=== PATIENT | female | born 1970 | race Caucasian/White ===

== ENCOUNTER → 2017-08-18 | Outpatient (REF) | payer MEDICARE, OTHER | LOC: M SFHCLACO 10:11 | PROVIDERS: ATTEND Physician Assistant | DX: Z01.419 Encounter for gynecological examination (general) (routine) without abnormal findings (principal); L85.9 Epidermal thickening, unspecified ==

== ENCOUNTER → 2017-09-05 | Outpatient (REF) | payer MEDICARE, OTHER ==
[2017-09-05 13:13] LABS: MEAN CORPUSCULAR HEMOGLOBIN 32.1 pg (27.0-33.0); MEAN CORPUSCULAR HGB CONC 33.3 g/dl (32.0-36.5); MEAN CORPUSCULAR VOLUME 96.6 fl (80.0-96.0); PLATELET COUNT, AUTOMATED 311 10^3/uL (150-450); RED CELL DISTRIBUTION WIDTH 12.7 % (11.5-14.5); WHITE BLOOD COUNT 11.5 10^3/uL (4.0-10.0)
[2017-09-05 14:08] LABS: FOLLICLE STIMULATING HORMONE 4.6 mIU/mL
[2017-09-05 14:15] LABS: LUTEINIZING HORMONE 3.9 mIU/mL
[2017-09-05 14:18] LABS: ALBUMIN 3.9 GM/DL (3.2-5.2); ALBUMIN/GLOBULIN RATIO 1.63 (1.00-1.93); ALKALINE PHOSPHATASE 56 U/L (45-117); ALT/SGPT 21 U/L (12-78); ANION GAP 6 MEQ/L (8-16); AST/SGOT 12 U/L (7-37); BILIRUBIN,TOTAL 0.3 MG/DL (0.2-1.0); BLOOD UREA NITROGEN 11 MG/DL (7-18); CALCIUM LEVEL 8.8 MG/DL (8.5-10.1); CARBON DIOXIDE LEVEL 28 MEQ/L (21-32); CHLORIDE LEVEL 107 MEQ/L (98-107); GLOMERULAR FILTRATION RATE > 60.0 (>58); GLUCOSE, FASTING 94 MG/DL (70-105); POTASSIUM SERUM 4.3 MEQ/L (3.5-5.1); SODIUM LEVEL 141 MEQ/L (136-145); TOTAL PROTEIN 6.3 GM/DL (6.4-8.2)
== END ==
LOC: M SFHCLACO 09:59
PROVIDERS: ATTEND Physician Assistant
DX: F34.1 Dysthymic disorder (principal); J44.9 Chronic obstructive pulmonary disease, unspecified; N92.6 Irregular menstruation, unspecified

== ENCOUNTER → 2018-05-08 | Outpatient (REF) | payer OTHER ==
[2018-05-08 15:45] LABS: ALBUMIN/GLOBULIN RATIO 1.38 (1.00-1.93); ALKALINE PHOSPHATASE 79 U/L (45-117); ALT/SGPT 21 U/L (12-78); ANION GAP 7 MEQ/L (8-16); AST/SGOT 14 U/L (7-37); BILIRUBIN,TOTAL 0.5 MG/DL (0.2-1.0); BLOOD UREA NITROGEN 13 MG/DL (7-18); CALCIUM LEVEL 9.2 MG/DL (8.5-10.1); CARBON DIOXIDE LEVEL 27 MEQ/L (21-32); CHLORIDE LEVEL 107 MEQ/L (98-107); CHOLESTEROL LEVEL 124 MG/DL (<200); CHOLESTEROL RISK RATIO 2.755 (<5); CREATININE FOR GFR 0.77 MG/DL (0.55-1.30); GLOMERULAR FILTRATION RATE > 60.0 (>58); GLUCOSE, FASTING 87 MG/DL (70-100); HDL CHOLESTEROL 45 MG/DL (>40); LDL CHOLESTEROL 56.8 MG/DL (<100); MAGNESIUM LEVEL 1.9 MG/DL (1.8-2.4); NON-HDL-C 79 MG/DL; POTASSIUM SERUM 4.1 MEQ/L (3.5-5.1); SODIUM LEVEL 141 MEQ/L (136-145); TOTAL PROTEIN 6.9 GM/DL (6.4-8.2); TRIGLYCERIDES LEVEL 111 MG/DL (<150)
[2018-05-11 00:37] LABS: Lyme Disease IgG/IgM Antibodie <0.91 ISR (0.00-0.90); Lyme Disease IgM Ab Quantitati <0.80 index (0.00-0.79)
== END ==
LOC: M SFHCLACO 10:54
DX: Z86.79 Personal history of other diseases of the circulatory system (principal); M62.838 Other muscle spasm
CPT/HCPCS: 83735

== ENCOUNTER → 2019-01-15 | Outpatient (CLI) | payer OTHER ==
--- NOTE | 2019-01-15 15:09 | REP ---
PELVIC SONOGRAPHY: HISTORY: Abnormal menstrual bleeding. FINDINGS: Transabdominal and transvaginal scanning are included. Uterine dimensions are normal measured at 7.5 x 5.1 x 7.2 cm. Endometrial echo 0.4 cm in thickness. There is a Nabothian cyst in the cervix. There are small echogenic foci in the endometrium. Visualized bladder marino are smooth. Normal ovaries are seen bilaterally. Right ovary measures 2.6 x 1.4 x 2.4 cm. Left ovary dimensions are 2.3 x 2.1 x 1.4 cm. There is a 1.4 cm follicle cyst in the right ovary. IMPRESSION: No significant morphologic abnormality. Electronically Signed by Joe Gay MD 01/15/2019 05:24 P
== END ==
LOC: M WHC 10:23
PROVIDERS: ATTEND Nurse Practitioner Women's Health
DX: N92.1 Excessive and frequent menstruation with irregular cycle (principal)

== ENCOUNTER → 2019-01-15 | Outpatient (REF) | payer OTHER ==
[2019-01-17 14:21] LABS: HPV HYBRID CAPTURE II Positive (Negative)
== END ==
LOC: M SFHCWAGY 08:58
PROVIDERS: ATTEND Nurse Practitioner Women's Health
DX: Z12.4 Encounter for screening for malignant neoplasm of cervix (principal); R87.610 Atypical squamous cells of undetermined significance on cytologic smear of cervix (ASC-US)

== ENCOUNTER → 2019-02-19 | Outpatient (REF) | payer OTHER | LOC: M SFHCWAGY 12:30 | PROVIDERS: ATTEND Nurse Practitioner Women's Health | DX: R87.810 Cervical high risk human papillomavirus (HPV) DNA test positive (principal); R87.610 Atypical squamous cells of undetermined significance on cytologic smear of cervix (ASC-US) ==

== ENCOUNTER → 2019-08-30 | Outpatient (CLI) | payer OTHER ==
--- NOTE | 2019-09-02 08:51 | REP ---
MRI cervical spine: 08/30/2019. Indication: Neck pain. Comparison: None. Technique: Multiplanar short and long TR sequences of the cervical spine were obtained without IV Gadolinium. Findings: There is straightening of the cervical lordosis. Disc desiccation and disc space narrowing are present throughout most pronounced at C5/C6 and C6/C7. There is a focus of heterogeneous elevated T2 signal within the superior aspect of T1 which demonstrates T1 prolongation as well. The vertebral flow voids appear unremarkable. No significant paraspinal soft tissue abnormalities are detected. C2/C3, C3/C4 and C4/C5: There are no significant disc herniations or areas of significant spinal canal / neural foraminal narrowing. C5/C6: There is an asymmetric disc osteophyte complex more apparent on the right and in with mild spinal canal and moderate to severe right neural foraminal narrowing. C6/C7: Diffuse disc osteophyte complex and suspected right lateral disc protrusion are present with severe bilateral neural foraminal narrowing. There is mild to moderate spinal canal narrowing. C7/T1: No disc herniation or significant spinal canal / neural foraminal narrowing. Impression: Degenerative sequelae of the cervical spine most pronounced at C6/C7 as described. 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 This could be confirmed with CT evaluation. Electronically Signed by Andrea España DO 09/02/2019 08:42 A
== END ==
LOC: M RAD 16:49
PROVIDERS: ATTEND Physician Assistant
DX: M54.2 Cervicalgia (principal); M25.78 Osteophyte, vertebrae

== ENCOUNTER → 2019-12-03 | Outpatient (REF) | payer OTHER ==
[2019-12-03 13:35] LABS: PLATELET COUNT, AUTOMATED 284 10^3/uL (150-450)
[2019-12-03 13:46] LABS: INR 1.06; PARTIAL THROMBOPLASTIN TIME 27.7 SECONDS (25.0-38.4); PROTHROMBIN TIME 13.5 SECONDS (11.8-14.0)
== END ==
LOC: M LABDRAW1 12:11
PROVIDERS: ATTEND Physician Assistant
DX: M47.22 Other spondylosis with radiculopathy, cervical region (principal); Z01.812 Encounter for preprocedural laboratory examination

== ENCOUNTER → 2020-04-28 | Outpatient (REF) | payer OTHER | LOC: M SFHCWAGY 10:46 | PROVIDERS: ATTEND Nurse Practitioner Women's Health | DX: Z12.4 Encounter for screening for malignant neoplasm of cervix (principal) ==

== ENCOUNTER → 2021-04-13 | Outpatient (CLI) | payer OTHER ==
--- NOTE | 2021-04-13 10:15 | REP ---
INDICATION: PAIN IN TOE OF LEFT FOOT. COMPARISON: None. TECHNIQUE: Four views left 2nd through 4th toes. FINDINGS: There is no acute fracture or dislocation. There are large bony spurs at the margins of the proximal and distal interphalangeal joints. A smoothly marginated calcific density projects at the dorsal margin of the 2nd metatarsal phalangeal joint, measuring approximately 14 x 6 mm. IMPRESSION: Large bony spurs at the margins of the 2nd proximal and distal interphalangeal joints. Calcific body at the dorsal aspect of the 2nd metatarsophalangeal joint. <Electronically signed by Bryan Amos > 04/13/21 1014
== END ==
LOC: M ADAMS 09:43
PROVIDERS: ATTEND Physician Assistant
DX: M79.675 Pain in left toe(s) (principal)

== ENCOUNTER → 2021-05-25 | Outpatient (REF) | payer OTHER ==
[2021-05-25 17:22] LABS: HEMOGLOBIN A1c 5.3 %
== END ==
LOC: M SFHCADAM 09:39
PROVIDERS: ATTEND Physician Assistant
DX: R73.9 Hyperglycemia, unspecified (principal)

== ENCOUNTER → 2021-08-23 | Outpatient (REF) | payer OTHER ==
[2021-08-23 18:02] LABS: BASO # 0.1 10^3/uL (0.0-0.2); BASO % 0.5 % (0.0-1.0); EOS # 0.6 10^3/uL (0.0-0.5); EOS % 4.4 % (0.0-3.0); HEMATOCRIT 45.3 % (36.0-47.0); HEMOGLOBIN 14.9 g/dl (12.0-15.5); LYMPH # 3.2 10^3/uL (1.5-5.0); LYMPH % 25.2 % (24.0-44.0); MEAN CORPUSCULAR HEMOGLOBIN 31.2 pg (27.0-33.0); MEAN CORPUSCULAR HGB CONC 32.9 g/dl (32.0-36.5); MONO # 0.9 10^3/uL (0.0-0.8); MONO % 7.5 % (2.0-8.0); NEUTROPHILS # 7.8 10^3/uL (1.5-8.5); NEUTROPHILS % 61.9 % (36.0-66.0); PLATELET COUNT, AUTOMATED 299 10^3/uL (150-450); RED BLOOD COUNT 4.77 10^6/uL (4.00-5.40); WHITE BLOOD COUNT 12.6 10^3/uL (4.0-10.0)
[2021-08-23 18:08] LABS: ALBUMIN 3.9 GM/DL (3.2-5.2); ALT/SGPT 24 U/L (12-78); BILIRUBIN,TOTAL 0.2 MG/DL (0.2-1.0); BLOOD UREA NITROGEN 13 MG/DL (7-18); CALCIUM LEVEL 9.9 MG/DL (8.5-10.1); CARBON DIOXIDE LEVEL 29 MEQ/L (21-32); CHLORIDE LEVEL 106 MEQ/L (98-107); CREATININE FOR GFR 0.88 MG/DL (0.55-1.30); GLOMERULAR FILTRATION RATE > 60.0 (>51); GLUCOSE, FASTING 85 MG/DL (70-100); POTASSIUM SERUM 4.3 MEQ/L (3.5-5.1); SODIUM LEVEL 138 MEQ/L (136-145); TOTAL PROTEIN 7.1 GM/DL (6.4-8.2)
== END ==
LOC: M SFHCADAM 13:53
PROVIDERS: ATTEND Family Medicine
DX: Z01.818 Encounter for other preprocedural examination (principal)

== ENCOUNTER → 2023-02-16 | Outpatient (CLI) | payer OTHER ==
[~2023-02-16] MED LIST: **SFHN** SODIUM BICARBONATE 8.4% 10MEQ 10ML VIAL ONE; AMIT10TA7 PO; FLUO10CA18 PO; INCR1INH INH; LIDOCAINE 1% MDV 20ML VIAL ONE; LOSA25TA13 PO; NOXI1TAB PO
[2023-02-16 14:41] VITALS: BP 100/64
== END ==
LOC: M WHCPRO 13:28
PROVIDERS: ATTEND Surgery
DX: R92.8 Other abnormal and inconclusive findings on diagnostic imaging of breast (principal)

== ENCOUNTER → 2023-08-08 | Outpatient (CLI) | payer OTHER ==
[~2023-08-08] MED LIST changes: -**SFHN** SODIUM BICARBONATE 8.4% 10MEQ 10ML VIAL ONE; -LIDOCAINE 1% MDV 20ML VIAL ONE
== END ==
LOC: M WHC 08:04
PROVIDERS: ATTEND Surgery
DX: R92.8 Other abnormal and inconclusive findings on diagnostic imaging of breast (principal)

== ENCOUNTER → 2023-08-14 | Outpatient (REF) | payer OTHER ==
[2023-08-14 13:52] LABS: BASO # 0.1 10^3/uL (0.0-0.2); BASO % 0.7 % (0.0-1.0); EOS # 0.5 10^3/uL (0.0-0.5); EOS % 5.5 % (0.0-3.0); HEMATOCRIT 48.4 % (36.0-47.0); HEMOGLOBIN 16.6 g/dl (12.0-15.5); LYMPH # 2.8 10^3/uL (1.5-5.0); LYMPH % 31.7 % (24.0-44.0); MEAN CORPUSCULAR HEMOGLOBIN 32.4 pg (27.0-33.0); MEAN CORPUSCULAR HGB CONC 34.3 g/dl (32.0-36.5); MEAN CORPUSCULAR VOLUME 94.5 fl (80.0-96.0); MONO # 0.9 10^3/uL (0.0-0.8); MONO % 9.7 % (2.0-8.0); NEUTROPHILS # 4.7 10^3/uL (1.5-8.5); NEUTROPHILS % 52.1 % (36.0-66.0); PLATELET COUNT, AUTOMATED 283 10^3/uL (150-450); RED BLOOD COUNT 5.12 10^6/uL (4.00-5.40); WHITE BLOOD COUNT 8.9 10^3/uL (4.0-10.0)
[2023-08-15 01:57] LABS: ALBUMIN 4.1 G/DL (3.2-5.2); ALKALINE PHOSPHATASE 96 U/L (46-116); ALT/SGPT 19 U/L (7.0-40); AST/SGOT 15 U/L (<34); BILIRUBIN,TOTAL 0.4 MG/DL (0.3-1.2); BLOOD UREA NITROGEN 12 MG/DL (9-23); CALCIUM LEVEL 9.9 MG/DL (8.5-10.1); CARBON DIOXIDE LEVEL 28 MMOL/L (20-31); CHLORIDE LEVEL 104 MMOL/L (98-107); CHOLESTEROL LEVEL 180 MG/DL (<200); CHOLESTEROL RISK RATIO 5.04 (<5); CREATININE FOR GFR 0.66 MG/DL (0.55-1.30); GLOMERULAR FILTRATION RATE > 60.0 (>51); GLUCOSE, FASTING 83 MG/DL (60-100); HDL CHOLESTEROL 35.7 MG/DL (>40); LDL CHOLESTEROL 106.7 MG/DL (<100); NON-HDL-C 144.3 MG/DL; POTASSIUM SERUM 4.4 MMOL/L (3.5-5.1); SODIUM LEVEL 138 MMOL/L (136-145); THYROID STIMULATING HORMONE 1.181 uIU/ML (0.55-4.78); TOTAL 25(OH) VITAMIN D 40.2 NG/ML (20.0-100.0); TRIGLYCERIDES LEVEL 188 MG/DL (<150)
== END ==
LOC: M SFHCADAM 11:22
PROVIDERS: ATTEND Physician Assistant Medical
DX: F33.1 Major depressive disorder, recurrent, moderate (principal); F41.1 Generalized anxiety disorder; I10 Essential (primary) hypertension; E55.9 Vitamin D deficiency, unspecified

== ENCOUNTER → 2023-09-11 | Outpatient (CLI) | payer OTHER | LOC: M RAD 07:38 | PROVIDERS: ATTEND Physician Assistant Medical | DX: Z12.2 Encounter for screening for malignant neoplasm of respiratory organs (principal); F17.210 Nicotine dependence, cigarettes, uncomplicated ==

== ENCOUNTER → 2023-09-11 | Outpatient (REF) | payer OTHER | LOC: M SFHCWAGY 13:39 | PROVIDERS: ATTEND Nurse Practitioner Family | DX: Z12.4 Encounter for screening for malignant neoplasm of cervix (principal) ==

== ENCOUNTER → 2024-02-12 | Outpatient (CLI) | payer OTHER | LOC: M ADAMS 14:49 | PROVIDERS: ATTEND Physician Assistant | DX: R22.31 Localized swelling, mass and lump, right upper limb (principal) ==

== ENCOUNTER → 2024-05-07 | Outpatient (REF) | payer OTHER ==
[~2024-05-07] MED LIST changes: +FLUO-290 PO; -FLUO10CA18 PO; +FLUO40CA PO; +MELO7.5T35 PO; +VITA200032 PO
[2024-05-07 15:10] LABS: BASO # 0.1 10^3/uL (0.0-0.2); BASO % 0.6 % (0.0-1.0); EOS # 0.4 10^3/uL (0.0-0.5); HEMATOCRIT 48.6 % (36.0-47.0); HEMOGLOBIN 15.9 g/dl (12.0-15.5); LYMPH # 2.4 10^3/uL (1.5-5.0); LYMPH % 29.3 % (24.0-44.0); MEAN CORPUSCULAR HEMOGLOBIN 32.1 pg (27.0-33.0); MEAN CORPUSCULAR HGB CONC 32.7 g/dl (32.0-36.5); MONO # 0.5 10^3/uL (0.0-0.8); MONO % 5.9 % (2.0-8.0); NEUTROPHILS # 4.8 10^3/uL (1.5-8.5); NEUTROPHILS % 58.7 % (36.0-66.0); PLATELET COUNT, AUTOMATED 277 10^3/uL (150-450); RED BLOOD COUNT 4.96 10^6/uL (4.00-5.40); WHITE BLOOD COUNT 8.3 10^3/uL (4.0-10.0)
[2024-05-07 15:21] LABS: THYROID STIMULATING HORMONE 1.666 uIU/ML (0.55-4.78)
[2024-05-07 15:23] LABS: ALBUMIN 4.1 G/DL (3.2-5.2); ALKALINE PHOSPHATASE 97 U/L (46-116); ALT/SGPT 19 U/L (7.0-40); AST/SGOT < 8 U/L (<34); BILIRUBIN,TOTAL 0.4 MG/DL (0.3-1.2); BLOOD UREA NITROGEN 16 MG/DL (9-23); CALCIUM LEVEL 9.9 MG/DL (8.5-10.1); CARBON DIOXIDE LEVEL 29 MMOL/L (20-31); CHLORIDE LEVEL 107 MMOL/L (98-107); CHOLESTEROL LEVEL 165 MG/DL (<200); CHOLESTEROL RISK RATIO 4.83 (<5); CREATININE FOR GFR 0.72 MG/DL (0.55-1.30); GLOMERULAR FILTRATION RATE > 60.0 (>51); GLUCOSE, FASTING 95 MG/DL (60-100); HDL CHOLESTEROL 34.1 MG/DL (>40); LDL CHOLESTEROL 90.7 MG/DL (<100); NON-HDL-C 130.9 MG/DL; POTASSIUM SERUM 4.3 MMOL/L (3.5-5.1); SODIUM LEVEL 141 MMOL/L (136-145); TOTAL PROTEIN 6.7 G/DL (5.7-8.2); TRIGLYCERIDES LEVEL 201 MG/DL (<150)
== END ==
LOC: M SFHCADAM 09:44
PROVIDERS: ATTEND Physician Assistant Medical
DX: I10 Essential (primary) hypertension (principal); K21.9 Gastro-esophageal reflux disease without esophagitis; E55.9 Vitamin D deficiency, unspecified; F33.1 Major depressive disorder, recurrent, moderate; F41.1 Generalized anxiety disorder

== ENCOUNTER → 2024-05-07 | Outpatient (REF) | payer OTHER ==
[2024-05-07 15:51] LABS: BASO # 0.1 10^3/uL (0.0-0.2); BASO % 0.6 % (0.0-1.0); EOS # 0.4 10^3/uL (0.0-0.5); EOS % 4.9 % (0.0-3.0); HEMATOCRIT 48.7 % (36.0-47.0); HEMOGLOBIN 15.8 g/dl (12.0-15.5); LYMPH # 2.6 10^3/uL (1.5-5.0); LYMPH % 30.7 % (24.0-44.0); MEAN CORPUSCULAR HEMOGLOBIN 31.9 pg (27.0-33.0); MEAN CORPUSCULAR HGB CONC 32.4 g/dl (32.0-36.5); MEAN CORPUSCULAR VOLUME 98.2 fl (80.0-96.0); MONO # 0.4 10^3/uL (0.0-0.8); MONO % 4.6 % (2.0-8.0); NEUTROPHILS % 58.6 % (36.0-66.0); PLATELET COUNT, AUTOMATED 284 10^3/uL (150-450); RED BLOOD COUNT 4.96 10^6/uL (4.00-5.40); WHITE BLOOD COUNT 8.6 10^3/uL (4.0-10.0)
[2024-05-07 15:57] LABS: ALBUMIN 4.1 G/DL (3.2-5.2); ALKALINE PHOSPHATASE 96 U/L (46-116); ALT/SGPT 18 U/L (7.0-40); AST/SGOT < 8 U/L (<34); BILIRUBIN,TOTAL 0.4 MG/DL (0.3-1.2); BLOOD UREA NITROGEN 17 MG/DL (9-23); CALCIUM LEVEL 9.9 MG/DL (8.5-10.1); CARBON DIOXIDE LEVEL 30 MMOL/L (20-31); CHLORIDE LEVEL 107 MMOL/L (98-107); CHOLESTEROL LEVEL 160 MG/DL (<200); CHOLESTEROL RISK RATIO 4.95 (<5); CREATININE FOR GFR 0.72 MG/DL (0.55-1.30); GLOMERULAR FILTRATION RATE > 60.0 (>51); GLUCOSE, FASTING 95 MG/DL (60-100); HDL CHOLESTEROL 32.3 MG/DL (>40); LDL CHOLESTEROL 88.1 MG/DL (<100); NON-HDL-C 127.7 MG/DL; POTASSIUM SERUM 4.3 MMOL/L (3.5-5.1); SODIUM LEVEL 141 MMOL/L (136-145); TOTAL PROTEIN 6.7 G/DL (5.7-8.2); TRIGLYCERIDES LEVEL 198 MG/DL (<150)
== END ==
LOC: M LABDRWAD 15:18
PROVIDERS: ATTEND Physician Assistant Medical
DX: I10 Essential (primary) hypertension (principal); R06.02 Shortness of breath; R07.2 Precordial pain

== ENCOUNTER 2024-05-10 06:15 | Day surgery (SDC) | payer OTHER ==
[~2024-05-10] VITALS: Ht 160 cm; Wt 84.8 kg
[2024-05-10] MEDS ORDERED: BACITRACIN OINTMENT 30GM TUBE As Ordered ONE (07:17)
[2024-05-10] MEDS ORDERED: ceFAZolin 2 GM/D5W 50 ML IV BAG As Ordered ONE (07:41)
[2024-05-10] MEDS ORDERED: LIDOCAINE 2% 100MG/5ML SDV (FOR ANES.) As Ordered ONE (08:09)
[2024-05-10] MEDS ORDERED: KETOROLAC 60MG 2ML VIAL As Ordered ONE (08:09)
[2024-05-10] MEDS ORDERED: MIDAZOLAM INJ 2MG/2ML VIAL As Ordered ONE (08:09)
[2024-05-10] MEDS ORDERED: propofoL 200 MG/20 ML VIAL As Ordered ONE (08:09)
[2024-05-10] MEDS ORDERED: ACETAMINOPHEN 1000MG 100ML IV BAG As Ordered ONE (08:09)
[2024-05-10] MEDS ORDERED: fentaNYL 100 MCG/2 ML INJECTION As Ordered ONE (08:09)
[2024-05-10] MEDS ORDERED: ONDANSETRON 4MG 2ML VIAL As Ordered ONE (08:09)
[2024-05-10] MEDS ORDERED: ePHEDrine SULFATE 25 MG/5 ML(5MG/ML) SYRINGE As Ordered ONE (08:09)
== END 2024-05-10 09:50 | disposition home or self-care (01) ==
LOC: M SDC 06:15
PROVIDERS: ATTEND Orthopaedic Surgery Hand Surgery
DX: M12.241 Villonodular synovitis (pigmented), right hand (principal); J44.9 Chronic obstructive pulmonary disease, unspecified; F17.218 Nicotine dependence, cigarettes, with other nicotine-induced disorders; Z79.51 Long term (current) use of inhaled steroids; I10 Essential (primary) hypertension; F41.9 Anxiety disorder, unspecified; F32.A Depression, unspecified; Z79.899 Other long term (current) drug therapy
CPT/HCPCS: 11421; 88305; J0131; J0665; J0690; J1100; J1885; J2250; J2405; J3010

== ENCOUNTER → 2024-07-16 | Outpatient (CLI) | payer OTHER | LOC: M WHC 07:11 | PROVIDERS: ATTEND Physician Assistant Medical | DX: Z12.31 Encounter for screening mammogram for malignant neoplasm of breast (principal) ==

== ENCOUNTER → 2024-09-18 | Outpatient (CLI) | payer OTHER | LOC: M WHC 14:07 | PROVIDERS: ATTEND Nurse Practitioner Family | DX: Z13.820 Encounter for screening for osteoporosis (principal) ==

== ENCOUNTER → 2024-11-29 | Outpatient (CLI) | payer OTHER | LOC: M RAD 17:06 | PROVIDERS: ATTEND Physician Assistant Medical | DX: F17.218 Nicotine dependence, cigarettes, with other nicotine-induced disorders (principal); R91.1 Solitary pulmonary nodule; J98.4 Other disorders of lung ==

== ENCOUNTER → 2025-06-11 | Outpatient (CLI) | payer OTHER ==
[~2025-06-11] MED LIST changes: +AMIT10TA11 PO; -AMIT10TA7 PO
== END ==
LOC: M RAD 08:15
PROVIDERS: ATTEND Physician Assistant Medical
DX: R91.1 Solitary pulmonary nodule (principal)

== ENCOUNTER → 2025-09-17 | Outpatient (CLI) | payer OTHER | LOC: M WHC 09:41 | PROVIDERS: ATTEND Nurse Practitioner Family | DX: Z12.31 Encounter for screening mammogram for malignant neoplasm of breast (principal) ==